=== PATIENT | male | born 1950 | race Caucasian/White ===

== ENCOUNTER → 2016-11-05 | Outpatient (CLI) | payer OTHER, BC | END | disposition home or self-care (01) | LOC: PT 08:57 ==

== ENCOUNTER 2016-12-01 09:05 | Outpatient (RCR) | payer BC, MEDICARE | END 2017-03-01 | disposition home or self-care (01) | LOC: PT | DX: Z47.1 Aftercare following joint replacement surgery (principal); Z96.611 Presence of right artificial shoulder joint ==

== ENCOUNTER 2017-03-25 09:00 | Outpatient (RCR) | payer BC, MEDICARE | END 2017-06-09 | disposition still patient (30) | LOC: PT | DX: Z47.1 Aftercare following joint replacement surgery (principal); Z96.611 Presence of right artificial shoulder joint ==

== ENCOUNTER → 2018-09-16 | Outpatient (CLI) | payer BC, MEDICARE ==
[2018-09-16 13:28] LABS: EOS % 0.6 % (0.0-4.0); HEMATOCRIT 46.2 % (42.0-52.0); HEMOGLOBIN 16.4 g/dL (13.5-18.0); LYMPH# 1.3 (1.50-4.00); MEAN CELL VOLUME 88 fl (78-100); MEAN CORPUSCULAR HEMOGLOBIN 31 pg (27-31); MEAN CORPUSCULAR HGB CONC 36 g/dL (33-37); MEAN PLATELET VOLUME 9.9 fl (7.4-10.4); MONO # 0.6 (0.20-0.80); NEU # 3.1 (1.40-6.50); PLATELET COUNT 185 K/mm3 (130-400); RED BLOOD COUNT 5.25 M/mm3 (4.20-5.60); RED CELL DISTRIBUTION WIDTH 12.7 % (11.5-14.5); WHITE BLOOD COUNT 5.1 K/mm3 (4.8-10.8)
[2018-09-16 13:42] LABS: ALBUMIN 4.5 g/dL (3.5-5.0); CALCIUM 9.1 mg/dL (8.4-10.2); POTASSIUM 4.8 mmol/L (3.6-5.0); TOTAL PROTEIN 7.4 g/dL (6.3-8.2)
== END ==
LOC: LAB 13:05
PROVIDERS: Physician Assistant
DX: I51.7 Cardiomegaly (principal); I99.9 Unspecified disorder of circulatory system; M89.9 Disorder of bone, unspecified; R05 Cough; R06.2 Wheezing

== ENCOUNTER → 2019-03-16 | Outpatient (CLI) | payer MEDICARE, BC | LOC: RAD 08:15 | DX: M48.061 Spinal stenosis, lumbar region without neurogenic claudication (principal); M51.16 Intervertebral disc disorders with radiculopathy, lumbar region; M46.96 Unspecified inflammatory spondylopathy, lumbar region ==

== ENCOUNTER 2019-04-06 10:56 | Outpatient (RCR) | payer BC | END 2019-04-06 11:30 | disposition still patient (30) | LOC: PT 10:56 | DX: M54.16 Radiculopathy, lumbar region (principal) ==

== ENCOUNTER → 2020-08-10 | Outpatient (CLI) | payer BC | LOC: LAB 08:36 | DX: E03.9 Hypothyroidism, unspecified (principal) ==

== ENCOUNTER → 2020-10-30 | Outpatient (CLI) | payer BC | LOC: LAB 10:29 | DX: U07.1 COVID-19 (principal) ==

== ENCOUNTER 2021-05-18 07:59 | Emergency (ER) | payer BC ==
[~2021-05-18] VITALS: Ht 175.3 cm; Wt 86.4 kg
[2021-05-18] MEDS ORDERED: LEVOTHYROXINE0.05 MG PO (08:09)
[2021-05-18] MEDS ORDERED: CYCLOBENZAPRINE10 M1 PO (09:47)
[2021-05-18 09:53] VITALS: BP 122/77
== END 2021-05-18 09:55 | disposition home or self-care (01) ==
LOC: ED 07:59
DX: M43.6 Torticollis (principal); E03.9 Hypothyroidism, unspecified; Z79.890 Hormone replacement therapy
CPT/HCPCS: J1885; J2360